=== PATIENT | female | born 1975 | race Two or more races ===

== ENCOUNTER → 2018-07-09 | Outpatient (CLI) | payer OTHER ==
--- NOTE | 2018-07-09 11:28 | RAD ---
Left shoulder, 3 views, 07/09/2018: HISTORY: Pain, disability determination No fracture or dislocation is identified. No significant arthritic change is seen. IMPRESSION: No significant left shoulder abnormality is detected. Electronically signed by: Alan Viramontes MD (07/09/2018 11:25 AM) [facility]
--- NOTE | 2018-07-09 11:29 | RAD ---
Left hip, 2 views, 07/09/2018: HISTORY: Hip pain No fracture or dislocation is identified. The hip joint space is well maintained. The periarticular soft tissues are unremarkable. IMPRESSION: No significant left hip abnormality is detected. Electronically signed by: Alan Viramontes MD (07/09/2018 11:26 AM) [facility]
== END | disposition home or self-care (01) ==
LOC: RAD 10:39
DX: M25.512 Pain in left shoulder (principal); M25.552 Pain in left hip
CPT/HCPCS: 73030; 73502

== ENCOUNTER → 2021-05-05 | Outpatient (CLI) | payer OTHER ==
--- NOTE | 2021-05-07 19:18 | RAD ---
Study: XR LUMBAR SPINE 2-3V Indication: Low back pain. Comparison: None. Findings: 5 nonrib-bearing lumbar vertebral elements. Normal alignment in the coronal plane. Maintained lumbar lordosis. No vertebral body or disc space height loss. No listhesis. No advanced facet arthrosis. Aor tic calcific atherosclerosis. Impression: 1. No acute radiographic abnormality of the lumbar spine. 2. No significant spondylosis. 3. Aortic calcific atherosclerosis somewhat accelerated for patient age. Electronically signed by: LC PATEL MD (05/07/2021 7:16 PM) [facility]
== END ==
LOC: RAD 12:11
PROVIDERS: ATTEND Anesthesiology Pain Medicine
DX: Z02.71 Encounter for disability determination (principal); M40.56 Lordosis, unspecified, lumbar region; I70.0 Atherosclerosis of aorta
CPT/HCPCS: 72100